=== PATIENT | female | born 1945 | race Caucasian/White ===

== ENCOUNTER → 2017-07-08 | Day surgery (SDC) | payer OTHER ==
--- NOTE | 2017-07-07 16:01 | TH ---
cc: SHARAD DESAI M.D. DATE: 07/08/2017 PROCEDURE TO BE PERFORMED Cervicofacial rhytidectomy. HISTORY OF PRESENT ILLNESS Ms. Andino is a 71-year-old female who wishes a rejuvenation of the face. The patient did have a cervicofacial rhytidectomy in the past. PAST MEDICAL HISTORY 1. Significant for removal of implants. 2. Hypercholesterolemia. 3. Hypertension. MEDICATION 1. Bupropion. 2. ___ 3. Alprazolam. 4. Pantoprazole. 5. Caduet. ALLERGIES MYCINS AND SULFA DRUGS. PHYSICAL EXAM CONSTITUTIONAL: General appearance. The patient is a well-developed female in no acute distress. Body habitus is within normal limits. There appear to be no deformities. Appears to have attention to grooming. HEENT: Eyes Conjunctivae and lids are within normal anatomical limits. The pupils are reactive to light and accommodation, size, and symmetry. There is no evidence of exudate, hemorrhage, or vessel change. Ears, mouth, nose, and throat The external inspection of the ears and nose fails to demonstrate any pathology, scars, lesions, or masses. Nasal mucosa, septum, and turbinates appear to be well hydrated as well as the lips and gums. No evidence of masses in the hypopharynx or submental area. RESPIRATORY: The patient shows no evidence of intercostal refractions. Otherwise, lungs are clear to auscultation without any abnormal sounds or rubs. CARDIOVASCULAR: The patient has a normal heart rate and rhythm. There is no evidence of noticed carotid bruits. Femoral pulses and pedal pulses in extremities are also within normal limits. GASTROINTESTINAL/ABDOMEN: Soft with no evidence of masses or tenderness. Unable to palpate the liver or spleen. No evidence of hernia. MUSCULOSKELETAL: Appears to be reasonable range of motion on the head, neck, spine, ribs, pelvis, right upper extremity, left upper extremity, right lower extremity, and left lower extremity. The muscle strength and tone appears to be equal and within accepted limits. SKIN: There is no rashes, lesions, or ulcers on the trunk, back, and extremities. NEUROLOGICAL: Examination is grossly normal. PSYCHIATRIC: The patient appears to have good orientation of time, place, and person. Does not appear to have any mood effects of depression, anxiety, or agitation. A well-healed rhytidectomy scars, otherwise no evidence of pathology. The patient has been evaluated by primary physician, all the blood work has been within normal limits. PLAN Rhytidectomy. Risks and possible complications were discussed. MD RANJEET Hubbard/JON /1:50 PM /3:54 PM
[~2017-07-08] MED LIST: ACETAMINOPHEN 1000 MG/100 ML VIAL IV ONE; ACETAMINOPHEN/HYDROcodone 325 MG/5 MG TAB ONE; ALPR0.5T99 PO; BALANCED SALT SOLN OPHT IRRIG 15 ML BTL ONE; BUPR150T3 PO; CADU5TAB2 PO; HYDR200T3 PO; LACTATED RINGER'S 1000 ML INJ 1,000 ML ONE; LIDOCAINE 1%/EPINEPHrine 1:200,000 PF SOLN 30 ML VIAL ONE; LIDOCAINE 2%/EPINEPHrine PF 1:200,000 20ML SDV ONE; MIDAZOLAM HCL 2 MG/2 ML VIAL ONE; NEOMYCIN/POLYMYXIN/BACITRACIN OINT 15 GM TUBE ONE; NEOMYCIN/POLYMYXIN/HYDROCORT OTIC SUSP 10 ML BTL ONE; ONDANSETRON HCL 4 MG/2 ML VIAL IV PUSH ONE; PROPOFOL 200 MG/20 ML AMP IV ONE; SODIUM CHLORIDE 0.9% INJ 10 ML ONE; VIIB40TA PO; ceFAZolin 1,000 MG/NS 100 ML IV SCH; ceFAZolin INJ 1,000 MG VIAL ONE
--- NOTE | 2017-07-08 10:33 | TN ---
cc: CAMERON YEUNG M.D. DATE OF SURGERY 07/08/2017 PREOPERATIVE DIAGNOSIS Facial aging POSTOPERATIVE DIAGNOSIS Facial aging PROCEDURE Cervicofacial rhytidectomy SURGEON Cameron Yeung MD ANESTHESIA LMA general plus a total of 150 cc of diluted lidocaine in which 50 cc of lidocaine was mixed in 500 cc of saline. The lidocaine was 1% lidocaine with epinephrine. COMPLICATIONS None DRAINS None PROCEDURE IN DETAIL She was properly consented, marked, properly anesthetized. The skin was sterilized with Microcyn and sterile draping applied. The procedure began by applying a syringe of Volvella in the upper and lower lips, a total of 0.5 cc and one syringe of Voluma both hyaluronic acid in the sikh and cheek areas. From there, approach started with a submental where a previous incision had been done and then I proceeded and performed the dissection and the removal of the supra-platysma and the retro platysma plane. Plication was done of the platysma plane utilizing a running locking 4-0 Mersilene suture. Through a pre and postauricular incision, a plane was elevated all the way down to the proximal nasolabial fold and then at the base of the neck communicating the submental incision. Plication of the SMAS and platysma was done superiorly and laterally utilizing the same 4-0 Mersilene suture. Trim of the excess of fat was done without any problems. I proceeded and applied the Artiss Fibrin sealant and started closing with minimal tension all the incisions. The preauricular incision, we utilized 5-0 Monocryl suture and 5-0 fast-absorbing gut, submental 3-0 Monocryl suture and the postauricular 3-0 Monocryl suture and surgical clips. Overall, the patient the tolerated the procedure well. She was awakened and extubated in the operating room. Compression dressings were applied. She was awakened and extubated in the operating room and transferred back to the postanesthesia care unit in stable condition. No complications appreciated. The patient tolerated the procedure fairly well. MD RANJEET Hubbard/WILLIE /10:16 AM 10:23 AM
== END | disposition home or self-care (01) ==
LOC: ESDC 06:20
PROVIDERS: ATTEND Plastic Surgery
DX: Z41.1 Encounter for cosmetic surgery (principal)
CPT/HCPCS: 00300; 15828; J0131; J0690; J2250; J2405; J3010; J7120